=== PATIENT | male | born 1990 | race African-American/Black ===

== ENCOUNTER 2022-03-10 15:51 | Inpatient (IN) | payer OTHER ==
[~2022-03-10] VITALS: Ht 182.9 cm; Wt 100.0 kg
[2022-03-10] MEDS ORDERED: ADDE30CA3 PO (16:10)
[2022-03-10 17:30] LABS: HEMATOCRIT 44.4 % (42.0-52.0); HEMOGLOBIN 14.6 g/dl (13.5-17.5); MEAN CORPUSCULAR HEMOGLOBIN 28.7 pg (27.0-33.0); MEAN CORPUSCULAR HGB CONC 32.9 g/dl (32.0-36.5); MEAN CORPUSCULAR VOLUME 87.4 fl (80.0-96.0); PLATELET COUNT, AUTOMATED 254 10^3/uL (150-450); RED BLOOD COUNT 5.08 10^6/uL (4.30-6.10); WHITE BLOOD COUNT 4.9 10^3/uL (4.0-10.0)
[2022-03-10 18:22] LABS: RSV AMPLIFICATION NEGATIVE (NEGATIVE)
[2022-03-10 18:25] LABS: ACETAMINOPHEN LEVEL < 2.0 UG/ML (10.0-30.0); ALBUMIN 4.1 GM/DL (3.2-5.2); ALT/SGPT 157 U/L (12-78); BILIRUBIN,DIRECT 0.1 MG/DL (0.0-0.2); BILIRUBIN,TOTAL 0.2 MG/DL (0.2-1.0); BLOOD UREA NITROGEN 12 MG/DL (7-18); CALCIUM LEVEL 8.9 MG/DL (8.5-10.1); CARBON DIOXIDE LEVEL 28 MEQ/L (21-32); CHLORIDE LEVEL 106 MEQ/L (98-107); CREATININE FOR GFR 1.09 MG/DL (0.70-1.30); ETHYL ALCOHOL (ETHANOL) < 0.003 % (0.000-0.010); GLOMERULAR FILTRATION RATE > 60.0 (>60); GLUCOSE, FASTING 93 MG/DL (70-100); SALICYLATE LEVEL < 1.7 MG/DL (5.0-30.0); SODIUM LEVEL 138 MEQ/L (136-145); TOTAL PROTEIN 7.7 GM/DL (6.4-8.2)
[2022-03-10 18:38] LABS: AMPHETAMINES LEVEL URINE POSITIVE (NEGATIVE); BARBITURATES URINE NEGATIVE (NEGATIVE); BENZODIAZEPINES URINE NEGATIVE (NEGATIVE); CANNABINOIDS URINE NEGATIVE (NEGATIVE); COCAINE METABOLITE URINE NEGATIVE (NEGATIVE); METHADONE URINE NEGATIVE (NEGATIVE); OPIATES URINE NEGATIVE (NEGATIVE); PHENCYCLIDINE URINE NEGATIVE (NEGATIVE)
[2022-03-11] MEDS: AMPHETAMINE/DEXTROAMPHETAMINE 5 MG *ER* CAPSULE (ADDERALL XR) PO SCH (08:02)
[2022-03-11] MEDS ORDERED: ADDE25CA PO (08:36)
[2022-03-11] MEDS ORDERED: HOME MED LIST COMPLETE! XX SCH (08:40)
[2022-03-12] MEDS: NICOTINE 21MG/24HR 1 EA TRANSDERMAL TD SCH (09:00)
[2022-03-12] MEDS: AMPHETAMINE/DEXTROAMPHETAMINE 5 MG *ER* CAPSULE (ADDERALL XR) PO SCH (09:53)
[2022-03-12] MEDS ORDERED: MAALOX 30 ML SUSP *UDC PO PRN (14:45)
[2022-03-12] MEDS ORDERED: LORazepam 1 MG TAB PO PRN (14:45)
[2022-03-12] MEDS ORDERED: MOM 30ML SUSPENSION UDC PO PRN (14:45)
[2022-03-12] MEDS ORDERED: OLANZapine ORAL DISINTEGRATING TAB 5MG PO PRN (14:45)
[2022-03-12] MEDS ORDERED: IBUPROFEN 400MG TAB PO PRN (14:45)
[2022-03-12] MEDS ORDERED: diphenhydrAMINE 25MG CAP PO PRN (14:45)
[2022-03-12 20:12] LABS: RSV AMPLIFICATION NEGATIVE (NEGATIVE)
[2022-03-13 00:14] VITALS: BP 152/97
[2022-03-13] MEDS: NICOTINE 21MG/24HR 1 EA TRANSDERMAL TD SCH (08:47)
[2022-03-13] MEDS: SERTRALINE HCL 50 MG TAB PO SCH (09:52)
[2022-03-13] MEDS: amLODIPine 5 MG TAB PO SCH (15:39)
[2022-03-13 16:08] VITALS: BP 141/74
[2022-03-13 16:27] LABS: HEPATITIS B CORE ANTIBODY IGM NEGATIVE (NEGATIVE); HEPATITIS B SURFACE ANTIGEN NEGATIVE (NEGATIVE)
[2022-03-14 06:20] VITALS: BP 124/68
[2022-03-14] MEDS: SERTRALINE HCL 50 MG TAB PO SCH (09:26)
[2022-03-14] MEDS: amLODIPine 5 MG TAB PO SCH (09:26)
[2022-03-14 16:05] VITALS: BP 131/71
[2022-03-15 06:16] VITALS: BP 137/66
[2022-03-15] MEDS: SERTRALINE HCL 50 MG TAB PO SCH (09:47)
[2022-03-15] MEDS: amLODIPine 5 MG TAB PO SCH (09:47)
[2022-03-15 16:12] VITALS: BP 119/69
[2022-03-15] MEDS: traZODone 50 MG TAB PO PRN (22:32)
[2022-03-16 06:06] VITALS: BP 121/71
[2022-03-16] MEDS: SERTRALINE HCL 50 MG TAB PO SCH (09:50)
[2022-03-16] MEDS: amLODIPine 5 MG TAB PO SCH (09:50)
[2022-03-16 18:09] VITALS: BP 136/68
[2022-03-16] MEDS: traZODone 50 MG TAB PO PRN (22:46)
[2022-03-17 06:26] VITALS: BP 130/65
[2022-03-17] MEDS: SERTRALINE HCL 50 MG TAB PO SCH (09:51)
[2022-03-17] MEDS: amLODIPine 5 MG TAB PO SCH (09:51)
[2022-03-17 17:31] VITALS: BP 138/65
[2022-03-18 06:20] VITALS: BP 135/66
[2022-03-18] MEDS: SERTRALINE HCL 50 MG TAB PO SCH (09:44)
[2022-03-18] MEDS: amLODIPine 5 MG TAB PO SCH (09:45)
[2022-03-18 19:12] VITALS: BP 136/81
[2022-03-19 06:34] VITALS: BP 116/69
[2022-03-19] MEDS ORDERED: TRAZ-252 PO (09:11)
[2022-03-19] MEDS ORDERED: AMLO1TAB24 PO (09:11)
[2022-03-19] MEDS ORDERED: SERT50TA29 PO (09:11)
[2022-03-19 09:25] VITALS: BP 128/80
[2022-03-19] MEDS: SERTRALINE HCL 50 MG TAB PO SCH (09:25)
[2022-03-19] MEDS: amLODIPine 5 MG TAB PO SCH (09:25)
== END 2022-03-19 10:38 | disposition home or self-care (01) | DRG 882 ==
LOC: M ED 15:51 → EDBD 15:51 → M ED INP 15:52 → M PSY 03-13 00:05
PROVIDERS: ADMIT Psychiatry & Neurology Psychiatry; ATTEND Psychiatry & Neurology Psychiatry
DX: F43.23 Adjustment disorder with mixed anxiety and depressed mood (principal); F43.10 Post-traumatic stress disorder, unspecified; Z87.891 Personal history of nicotine dependence; R45.850 Homicidal ideations; I10 Essential (primary) hypertension